=== PATIENT | female | born 1930 | race Caucasian/White ===

== ENCOUNTER 2017-10-29 15:18 | Emergency (ER) | payer OTHER ==
[~2017-10-29] VITALS: Ht 167.6 cm; Wt 104.3 kg
[~2017-10-29 15:18] MED LIST: ALPHAGAN P 15 M15 M1 OP; ASPIR 8181 MG PO; CYCLOBENZAPRIN7.5 MG PO; EXEMESTANE25 MG PO; FUROSEMIDE20 MG PO; KEFLEX500 MG PO; LETROZOLE2.5 MG PO; LOSARTAN POTAS100 MG PO; METOPROLOL TART50 MG PO; PRAVASTATIN SOD40 MG PO; PREDNISONE5 MG PO; SYNTHROID0.05 MG PO; TAFLUPROST OP; TYLENOL XSTR500 MG PO; WARFARIN SODIUM3 MG PO; ZOLPIDEM TARTRA10 MG PO
[2017-10-29 16:32] LABS: ABSOLUTE BASOPHIL COUNT 0 /CUMM (0.0-0.2); ABSOLUTE EOSINOPHIL COUNT 0.1 /CUMM (0.0-0.7); ABSOLUTE GRANULOCYTE CT 2.8 /CUMM (1.4-6.5); ABSOLUTE LYMPH COUNT 1.1 /CUMM (1.2-3.4); ABSOLUTE MONOCYTE COUNT 0.5 /CUMM (0.10-0.60); BASOPHIL % 0.7 % (0.0-2.0); EOSINOPHIL % 2.2 % (0-5); GRANULOCYTE % 61.9 % (42.2-75.2); HEMATOCRIT 35.7 % (37-47); MEAN CORPUSCULAR HGB 29.8 PG (27.0-31.0); MEAN CORPUSCULAR HGB CONC 31.8 G/DL (33.0-37.0); MEAN CORPUSCULAR VOLUME 93.6 FL (81.0-99.0); MEAN PLATELET VOLUME 9.1 FL (7.4-10.4); PLATELET COUNT 177 /CUMM (130-400); RBC DISTRIBUTION WIDTH 14.7 % (11.5-14.5); RED BLOOD CELL CT 3.81 /CUMM (4.20-5.40); WHITE BLOOD CELL COUNT 4.5 /CUMM (4.8-10.8)
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
--- NOTE | 2017-10-29 17:47 | CT SCAN REPORT ---
EXAMINATION: CT LUMBAR SPINE WITHOUT CONTRAST CLINICAL INFORMATION: Status post lumbar fusion with lumbar pain and weakness. COMPARISON: CT 04/26/2017. TECHNIQUE: Helical non-contrast CT images were obtained through the lumbar spine and 1.25 and 2.5 mm axial reconstructions were reviewed along with sagittal and coronal MPRs. DLP: 1228 mGy-cm FINDINGS: There has been interval surgery with placement of bilateral pedicular screws traversing the pedicle fractures at L2, along with left hemilaminectomy and placement of an interbody spacer and graft material. There has also been interval surgery at L5-S1, with placement of an interbody spacer and graft material. However, the spacer has become displaced posterolaterally toward the left, projecting into the subarticular zone likely impacting the exiting left L5 and traversing left S1 nerve roots. There is lucency surrounding the S1 pedicular screws, up to 3 mm at the anterior aspect of the left screw. No acute fracture. Stable L4-L5 anterolisthesis. IMPRESSION: 1. Evidence of interval surgery as detailed in the comments, with left posterolateral displacement of the L5-S1 interbody spacer into the left anterior epidural space, potentially impacting the left L5 and S1 nerve roots. 2. Lucency surrounding the pedicular screws within the S1 vertebral body has increased, up to 3 mm on the left.
--- NOTE | 2017-10-29 18:04 | RADIOLOGY REPORT ---
EXAMINATION: XR PORTABLE CHEST CLINICAL INFORMATION: Weakness. COMPARISON: Chest radiograph 07/02/2014. TECHNIQUE: Portable frontal view of the chest was obtained. FINDINGS: The patient is slightly rotated which limits evaluation. Within limitations of the examination there is no focal consolidation. No pleural effusion. Cardiomediastinal silhouette and pulmonary vasculature are within normal limits. IMPRESSION: No evidence of acute cardiopulmonary disease.
[2017-10-29 18:42] VITALS: BP 158/93
[2017-10-29] MEDS ORDERED: KEFLEX500 M1 PO (19:03)
== END 2017-10-29 19:10 ==
LOC: ERH 15:18
PROVIDERS: Emergency Medicine
DX: N39.0 Urinary tract infection, site not specified (principal); R53.1 Weakness
CPT/HCPCS: 71045; 81001